=== PATIENT | male | born 1990 | race Caucasian/White ===

== ENCOUNTER 2024-06-09 04:52 | Emergency (ER) | payer OTHER, SELFPAY ==
[2024-06-09 04:53] VITALS: BP 163/104; PULSE 95; RESP 18; TEMP 36.7; O2SAT 96; BMI 29.8
--- NOTE | 2024-06-09 04:55 | HMH.EDGENADL ---
Discharge Plan Disposition Patient Disposition: Home, Self-Care Prescriptions Prescriptions: New methocarbamol 500 mg tablet 500 mg PO Q6H PRN (Reason: pain) Qty: 30 0RF Referrals Follow up/Referrals: Provider,Referral, MD [Primary Care Provider] - See instructions Activity Restrictions/Add. Instructions Additional Instructions/Restrictions: Please follow-up with your primary care provider. Please return to the emergency department if you develop any new or worsening symptoms or become concerned for your health. Please take Tylenol and ibuprofen as needed for pain. Clinical Impressions Clinical Impression: Back pain Qualifiers: Chronicity: acute Back pain laterality: bilateral Sciatica presence: without sciatica Instructions Patient Instructions: DI for Low Back Pain Discharge ED Provider: Micha Calvillo General Adult HPI General Chief complaint: Back Pain/Injury Stated complaint: back, kidney pain Time Seen by Provider: 06/09/24 04:55 History of Present Illness HPI narrative: 33-year-old male with no significant past medical history presents for back pain. He reports it has been going on for the last 2 days. It is bilateral in nature and sometimes midline as well. He reports it is the mid back. He reports that he is an active alejandrina but does not have any specific injuries recently. He reports the pain is sometimes sharp and improved with moving around. He reports occasional urinary urgency but denies any frequency or difficulty urinating. Denies any lower extremity pain numbness or weakness. Reports no concern for STDs. Denies any fever at home. No significant surgeries Related Data Previous Rx's ?Medication ?Instructions ?Recorded methocarbamol 500 mg tablet 500 mg PO Q6H PRN pain #30 tabs 06/09/24 Allergies Allergy/AdvReac Type Severity Reaction Status Date / Time Penicillins Allergy Other Verified 06/09/24 05:07 [facility] Disclaimer: The information contained in this section may have been updated after the patient was seen, as this information can be updated by other users. Social History Smoking Status: Current every day smoker alcohol intake: never current occupational status: other Travel in the last 8 weeks: None ROS Obtained: Yes All systems reviewed & no additional complaints except as documented Physical Exam General General appearance: alert and in no apparent distress Head Head exam: atraumatic and normocephalic Eye Eye exam: Present normal appearance, PERRL and EOMI ENT ENT exam: Present normal oropharynx and normal external ear exam Neck Neck exam: Present normal inspection and full ROM Chest Chest inspection: Present normal inspection and symmetric chest wall rise; Absent tenderness Respiratory Respiratory exam: Present normal lung sounds bilaterally; Absent respiratory distress Cardiovascular Cardiovascular exam: Present regular rate and normal rhythm Abdominal Exam Abdominal exam: Present soft; Absent distention, tenderness or guarding Extremities Exam Extremities exam: Present normal inspection; Absent edema or joint swelling Back Exam Back exam: Present normal inspection, tenderness, CVA tenderness (R) and CVA tenderness (L) Neurological Exam Neurological exam: Present alert and oriented X3; Absent motor sensory deficit Psychiatric Psychiatric exam: Present normal affect and normal mood Skin Skin exam: Present warm, dry and normal color Lymphatic Lymphatic Findings: no adenopathy Medical Decision Making Medical Records Medical records reviewed: Yes I reviewed the patient's medical records. Screening: Per USPSTF and CDC recommendations, given the prevalence of disease in our region, it is our hospital?s policy to screen for HIV and viral Hepatitis for all patients aged 18 and over and those with ongoing risk factors. Manuel Inquiry Pt receiving controlled substance: No Manuel was queried for this patient: No Vital Signs: 06/09/24 04:53 06/09/24 05:17 06/09/24 05:30 Temperature 98.0 F Temperature Source Oral Pulse Rate 85 81 Pulse Rate [Left Radial] 95 H Respiratory Rate 18 Blood Pressure 119/84 126/82 Blood Pressure [Right Arm] 163/104 H Blood Pressure Mean [Right Arm] 123 Blood Pressure Source [Right Arm] Automatic Cuff Blood Pressure Position [Right Arm] Sitting 02 Sat by Pulse Oximetry 96 96 95 Oxygen Delivery Method Room Air Lab Data Lab results reviewed: Yes I reviewed the patient's lab results. Lab Results 06/09/24 04:59: Urine Color Yellow, Urine Appearance Clear, Urine pH 6.0, Ur Specific [place] 1.025, Urine Protein Negative, Urine Glucose (UA) Negative, Urine Ketones Negative, Urine Blood Negative, Urine Nitrate Negative, Urine Bilirubin Negative, Urine Urobilinogen 0.2, Ur Leukocyte Esterase Negative, Urine WBC Occasional, Ur Squamous Epith Cells None, Urine Bacteria Trace 06/09/24 05:17: WBC 11.7 H, RBC 5.32, Hgb 15.8, Hct 46.1, MCV 86.7, MCH 29.7, MCHC 34.3, RDW 12.4, Plt Count 267, MPV 11.1 H, Neut % (Auto) 60.3, Lymph % (Auto) 27.2, [place] % (Auto) 7.1, Eos % (Auto) 4.4, Baso % (Auto) 0.7, Neut # (Auto) 7.1, Lymph # (Auto) 3.2, [place]lin # (Auto) 0.8, Eos # (Auto) 0.5 H, Baso # (Auto) 0.1, Sodium 139, Potassium 4.4, Chloride 104, Carbon Dioxide 29, Anion Gap 10.4, BUN 10, Creatinine 0.90, Estimated Creat Clear 165, Estimated GFR 97, Est GFR ( Amer) 118, Glucose 91, Calcium 9.3, Total Bilirubin 0.6, AST 44, ALT 36, Alkaline Phosphatase 90, Total Protein 7.3, Albumin 4.4, Globulin 2.9, Albumin/Globulin Ratio 1.5 06/09/24 05:17 06/09/24 05:17 Orders (Tests/Meds): ED MEDICATIONS Generic Name Dose Route Start Last Admin Trade Name Freq PRN Reason Stop Dose Admin Sodium Chloride 10 ml 06/09/24 05:55 06/09/24 05:56 Sodium Chloride 0.9% 10ml Syr (Rad Only) IV 07/09/24 05:54 10 ml NEEDED PRN Administration Maintain IV Site Discontinued Medications Generic Name Dose Route Start Last Admin Trade Name Freq PRN Reason Stop Dose Admin Acetaminophen 1,000 mg 06/09/24 05:07 06/09/24 05:42 Acetaminophen 500mg Tab PO 06/09/24 05:08 1,000 mg ONCE ONE Administration Iopamidol 75 ml 06/09/24 05:55 06/09/24 05:56 Iopamidol-370 (76%);100ml Bottle IV 06/09/24 05:56 75 ml ONCE ONE Administration Ketorolac Tromethamine 30 mg 06/09/24 05:07 06/09/24 05:42 Ketorolac 30mg/Ml Vial IV 06/09/24 05:08 30 mg ONCE ONE Administration ORDERS Category Date Time Status CT abdomen pelvis w con Stat Cat Scan 06/09/24 05:07 Completed CBC w/Auto Diff [Complete Blood Count Auto Diff] Stat Lab 06/09/24 05:17 Completed CMP [Comprehensive Metabolic Panel] Stat Lab 06/09/24 05:17 Completed HIV Combo Routine Lab 06/09/24 05:17 Received UA [Urinalysis and Microscopic] Stat Lab 06/09/24 04:59 Completed Medical Decision Narrative: 33-year-old male with no significant past medical history presents with couple days of mid back/bilateral flank pain. History was obtained via interactive discussion with patient. On arrival, patient is [afebrile, hemodynamically stable, satting appropriately, alert, oriented x4, GCS 15], moving all extremities spontaneously. Full physical exam performed and significant for bilateral CVA tenderness, mild tenderness in the mid Differential includes but is not limited to musculoskeletal pain, stone, UTI, pyelo. Patient was given Tylenol Toradol for symptomatic management and correction of underlying abnormalities. Workup initiated including CBC CMP UA GC chlamydia CT abdomen and pelvis with IV contrast. On re-evaluation, patient [remains afebrile, HD stable.] Laboratory workup independently interpreted by me and significant for minimal leukocytosis, normal renal function, urine without blood and only trace bacteria, only occasional WBC, does not appear consistent with acute infection. Imaging independently interpreted by me and significant for no evidence of kidney stone, renal abnormality, intra-abdominal pathology. See radiology read for full review of final results. Given patient history, exam and workup, patient's presentation most likely represents musculoskeletal pain. These findings were communicated patient was discharged in stable condition with return precautions. Patient was discharged with prescription for Robaxin.. Procedures Risk/Benefits of Procedure(s) Were Explained: Yes Critical Care Critical Care Time Critical Care Time: No
--- NOTE | 2024-06-09 05:02 | PC.NURSE ---
Pt ambulatory to Emergency Department, gave urine sample that was sent to the lab.
--- NOTE | 2024-06-09 05:07 | CT_ITS ---
PROCEDURE INFORMATION: Exam: CT Abdomen And Pelvis With Contrast Exam date and time: 06/09/2024 5:49 AM Age: 33 years old Clinical indication: Other: Bilateral flank/back pain TECHNIQUE: Imaging protocol: Computed tomography of the abdomen and pelvis with contrast. Radiation optimization: All CT scans at this facility use at least one of these dose optimization techniques: automated exposure control; mA and/or kV adjustment per patient size (includes targeted exams where dose is matched to clinical indication); or iterative reconstruction. Contrast material: ISOVUE; Contrast volume: 75 ml; Contrast route: IV; COMPARISON: No relevant prior studies available. FINDINGS: Lungs: Basilar atelectasis/scarring. Right upper lobe centrally predominant subsolid opacities in a bronchovascular distribution. Heart: Base of heart is unremarkable as visualized. Liver: Punctate hypodensity within the anterior right hepatic lobe, too small to characterize by modality, statistically likely to represent benign findings. Gallbladder and biliary ducts: Normal. No calcified stones. No ductal dilation. Pancreas: Normal. No ductal dilation. Spleen: Normal. No splenomegaly. Adrenal glands: Normal. No mass. Kidneys and ureters: Normal. No hydronephrosis. Stomach and bowel: [id number] colonic stool burden. Appendix: No evidence of appendicitis. Intraperitoneal space: Unremarkable. No free air. No significant fluid collection. Vasculature: Calcified pelvic phleboliths. Lymph nodes: Unremarkable. No enlarged lymph nodes. Urinary bladder: Unremarkable as visualized. Reproductive: Unremarkable as visualized. Bones/joints: No acute or aggressive osseous abnormality. Soft tissues: Bilateral gynecomastia. IMPRESSION: Right upper lobe centrally predominant subsolid opacities in a bronchovascular distribution which can be seen in infection, inflammation. This finding is incompletely evaluated, consider dedicated CT of the chest for definitive assessment.
[2024-06-09 05:16] LABS: Microscopic, Urine URINE MICROSCOPIC (MICROSCOPIC)
[2024-06-09 05:17] VITALS: BP 119/84; PULSE 85; O2SAT 96
[2024-06-09 05:19] LABS: Appearance,Urine CLEAR (Clear); Bilirubin,Urine Negative (Negative); Blood, Urine Negative (Negative); Color,Urine YELLOW (Yellow); Glucose,Urine (UA) Negative (Negative); Ketones,Urine Negative (Negative); Leukocyte Esterase,Urine Negative (Negative); Nitrate,Urine Negative (Negative); Protein,Urine Negative (Negative); Specific Gravity, Urine 1.025 (1.005-1.030); Urobilinogen,Urine 0.2 EU/dl (0.2)
[2024-06-09 05:30] VITALS: BP 126/82; PULSE 81; O2SAT 95
[2024-06-09 05:35] LABS: Basophils # 0.1 K/mm3 (0-0.2); Basophils % 0.7 % (0.1-2.0); Eosinophils # 0.5 K/mm3 (0.0-0.4); Eosinophils % 4.4 % (0.1-12.0); Hematocrit 46.1 % (42.0-52.0); Hemoglobin 15.8 g/dL (14.1-18.0); Lymphocytes # 3.2 K/mm3 (0.7-4.5); Lymphocytes % 27.2 % (10-50); Mean Corpuscular HGB Conc 34.3 g/dL (31.8-35.4); Mean Corpuscular Hemoglobin 29.7 pg (27.0-31.2); Mean Corpuscular Volume 86.7 fl (80-94); Mean Platelet Volume 11.1 fl (7.4-10.4); Monocytes # 0.8 K/mm3 (0.1-1.0); Monocytes % 7.1 % (1.7-9.3); Neutrophils # 7.1 K/mm3 (1.8-7.8); Neutrophils % 60.3 % (37.0-80.0); Platelet Count 267 K/mm3 (142-424); Red Blood Count 5.32 M/mm3 (4.60-6.20); Red Cell Distribution Width 12.4 % (11.5-17.5); White Blood Count 11.7 K/mm3 (4.8-10.8)
[2024-06-09] MEDS: KETOROLAC 30MG/ML VIAL 30 MG IV (05:42)
[2024-06-09] MEDS: ACETAMINOPHEN 500MG TAB 1000 MG PO (05:42)
[2024-06-09 05:43] LABS: Bacteria,Urine Trace /lpf; WBC,Urine Occasional #/hpf (0-3)
[2024-06-09 05:44] LABS: Alanine Aminotransferase 36 U/L (12-78); Albumin Level 4.4 g/dl (3.5-5.0); Albumin/Globulin Ratio 1.5 (1.1-1.8); Alkaline Phosphatase 90 U/L (38-126); Anion Gap 10.4 mEq/L (5-15); Aspartate Amino Transferase 44 U/L (17-59); Bilirubin,Total 0.6 mg/dl (0.2-1.3); Blood Urea Nitrogen 10 mg/dl (9-20); Calcium 9.3 mg/dl (8.4-10.2); Carbon Dioxide 29 mmol/L (22.0-30.0); Chloride 104 mmol/L (98-107); Creatinine Clearance Estimated 165 mL/min (50-200); Estimated Glomerular Filt Rate 97 ml/min (>60); GFR (African American) 118 ML/MIN (>60); Globulin 2.9 g/dL (1.3-3.2); Glucose 91 mg/dl (74-100); Potassium 4.4 mmoL/L (3.5-5.1); Sodium 139 mmol/L (136-145); Total Protein,Serum 7.3 g/dl (6.3-8.2)
[2024-06-09] MEDS: IOPAMIDOL-370 (76%);100ML BOTTLE 75 ML IV (05:56)
[2024-06-09] MEDS: SODIUM CHLORIDE 0.9% 10ML SYR (RAD ONLY) 10 ML IV (05:56)
[2024-06-09 06:52] VITALS: BP 126/84; PULSE 82; RESP 18; TEMP 36.7; O2SAT 94
[2024-06-09 13:17] LABS: HIV Combo NEGATIVE (Negative)
[2024-06-12 21:08] LABS: Neisseria gonorrhoeae, NAA Negative (Negative)
== END 2024-06-09 06:57 | disposition home or self-care (01) ==
PROVIDERS: Emergency Provider Emergency Medicine
DX: M54.9 Dorsalgia, unspecified (principal); R39.15 Urgency of urination
CPT/HCPCS: 74177; 80053; 81001; 85025; 87389; 87491; 87591; 96374; 99285; J1885; Q9967

== ENCOUNTER 2024-06-13 14:06 | Emergency (ER) | payer OTHER, SELFPAY ==
[2024-06-13 14:08] VITALS: BP 142/92; PULSE 87; RESP 20; TEMP 36.6; O2SAT 98; BMI 29.8
--- NOTE | 2024-06-13 14:12 | HMH.EDGENADL ---
Discharge Plan Disposition Patient Disposition: Home, Self-Care Condition: Good Prescriptions Prescriptions: New clindamycin HCl 300 mg capsule 300 mg PO Q8H 7 Days Qty: 21 0RF No Action methocarbamol 500 mg tablet 500 mg PO Q6H PRN (Reason: pain) Qty: 30 0RF Referrals Follow up/Referrals: Provider,Referral, [Primary Care Provider] - See instructions Activity Restrictions/Add. Instructions Additional Instructions/Restrictions: Please take your antibiotic till it is gone. Utilize a dental balls as needed for local relief. Follow-up with your PCP or return to the ER for any continued new or worsening signs or symptoms. I highly recommend utilizing the dentistry urgent clinic as you already are aware of. If not continue to keep your appointment with dentistry later this month Clinical Impressions Clinical Impression: Dentalgia Stand Alone Forms Stand Alone Forms: Work/School Release Print Language Print Language: Danish Discharge ED Provider: Juan Lynch General Adult HPI <JACINDA Parisi - Last Filed: 06/13/24 16:21> General Chief complaint: Dental/Oral Stated complaint: broken tooth Time Seen by Provider: 06/13/24 14:12 History of Present Illness HPI narrative: Patient presents for evaluation of a broken tooth. Patient states he broke his right rearmost molar 3 days ago. They attempted to go to the dental emergency clinic today but were too late. Patient was able to get a dentistry appointment but it is not until 2 weeks from now. He reports that his got more painful when he feels like his face is swelling. He denies any difficulty speaking eating drinking fever chills hemoptysis hematochezia melena nausea vomit diarrhea. Related Data Previous Rx's ?Medication ?Instructions ?Recorded methocarbamol 500 mg tablet 500 mg PO Q6H PRN pain #30 tabs 06/09/24 clindamycin HCl 300 mg capsule 300 mg PO Q8H 7 days #21 caps 06/13/24 Allergies Allergy/AdvReac Type Severity Reaction Status Date / Time Penicillins Allergy Other Verified 06/09/24 05:07 PFSH <JACINDA Parisi - Last Filed: 06/13/24 16:21> PFS Disclaimer: The information contained in this section may have been updated after the patient was seen, as this information can be updated by other users. Social History (Updated 06/09/24 @ 06:41 by Micha Calvillo MD) Smoking Status: Current every day smoker alcohol intake: never current occupational status: other Travel in the last 8 weeks: None Have you lived/traveled outside [place] in past 30 days?: No Contact w/someone who lives/traveled outside US past 30 days?: No Exposure to someone with infectious disease in past 14 days?: No Do you have a fever (greater than 100.4 F or 38 C)?: No Have you tested positive for COVID-19: No Exposed to someone with COVID-19 in past 14 days?: No Do you have a sore throat?: No Do you have a cough?: No Do you have any weakness?: No Do you have any diarrhea?: No Are you experiencing any unusual bleeding?: No Do you have any muscle aches/pain?: No Do you have any abdominal pain?: No Are you experiencing loss of taste or smell?: No <JACINDA Parisi - Last Filed: 06/13/24 16:21> ROS Obtained: Yes Systems reviewed as appropriate & no additional complaints except as documented Physical Exam <JACINDA Parisi - Last Filed: 06/13/24 16:21> General General appearance: alert Respiratory Respiratory exam: Present normal lung sounds bilaterally Cardiovascular Cardiovascular exam: Present regular rate Neurological Exam Neurological exam: Present alert and oriented X3 Medical Decision Making <JACINDA Parisi - Last Filed: 06/13/24 16:21> Medical Records Screening: Per USPSTF and CDC recommendations, given the prevalence of disease in our region, it is our hospital?s policy to screen for HIV and viral Hepatitis for all patients aged 18 and over and those with ongoing risk factors. Manuel Inquiry Pt receiving controlled substance: No Vital Signs: 06/13/24 14:08 06/13/24 14:35 Temperature 97.9 F 98.0 F Temperature Source Oral Pulse Rate 80 Pulse Rate [Left Radial] 87 Respiratory Rate 20 20 Blood Pressure 140/79 Blood Pressure [Right Arm] 142/92 H Blood Pressure Mean [Right Arm] 108 02 Sat by Pulse Oximetry 98 Oxygen Delivery Method Room Air Room Air Orders (Tests/Meds): ED MEDICATIONS Discontinued Medications Generic Name Dose Route Start Last Admin Trade Name Freq PRN Reason Stop Dose Admin Clindamycin HCl 300 mg 06/13/24 14:20 06/13/24 14:28 Clindamycin 150mg Capsule PO 06/13/24 14:21 300 mg ONCE ONE Administration Lidocaine HCl 15 ml 06/13/24 14:19 06/13/24 14:28 Lidocaine 2% Viscous Lisandra 15ml Udc PO 06/13/24 14:20 15 ml ONCE ONE Administration Medical Decision Narrative: In summary patient is a 33-year-old male who presents to the emergency department for evaluation of a broken tooth and pain. Patient is hemodynamically stable afebrile upon arrival, afebrile. Physical exam does show a broken right lower rearmost molar however there is no evidence of cellulitis edema swelling tongue deviation hardness or swelling tongue protrusion. There is no cervical lymphadenopathy. There is no submandibular swelling. No facial redness or fullness.. Differential diagnosis includes dentalgia but versus early dentalgia. Initial workup was considered with labs and imaging however patient has no red flags of deep space infection thus deferred. Initial interventions include dental balls. Patient offered dental block however patient declined. Patient directed decision making. He did request antibiotics and while I feel he has minimal symptoms of evidence of cellulitis now he is certainly at high risk and given his penicillin allergy and was started on clindamycin. Thus patient is appropriate for discharge with dental balls prescription for clindamycin with first dose given here and recommendations for following up with the dental urgent care clinic or keeping his already up established dental appointment in 2 weeks. Patient verbalized understanding and agreement. <Juan Lynch MD - Last Filed: 06/13/24 16:23> Vital Signs: 06/13/24 14:08 06/13/24 14:35 Temperature 97.9 F 98.0 F Temperature Source Oral Pulse Rate 80 Pulse Rate [Left Radial] 87 Respiratory Rate 20 20 Blood Pressure 140/79 Blood Pressure [Right Arm] 142/92 H Blood Pressure Mean [Right Arm] 108 02 Sat by Pulse Oximetry 98 Oxygen Delivery Method Room Air Room Air Orders (Tests/Meds): ED MEDICATIONS Discontinued Medications Generic Name Dose Route Start Last Admin Trade Name Freq PRN Reason Stop Dose Admin Clindamycin HCl 300 mg 06/13/24 14:20 06/13/24 14:28 Clindamycin 150mg Capsule PO 06/13/24 14:21 300 mg ONCE ONE Administration Lidocaine HCl 15 ml 06/13/24 14:19 06/13/24 14:28 Lidocaine 2% Viscous Lisandra 15ml Udc PO 06/13/24 14:20 15 ml ONCE ONE Administration Medical Decision Narrative: In summary patient is a 33-year-old male who presents to the emergency department for evaluation of a broken tooth and pain. Patient is hemodynamically stable afebrile upon arrival, afebrile. Physical exam does show a broken right lower rearmost molar however there is no evidence of cellulitis edema swelling tongue deviation hardness or swelling tongue protrusion. There is no cervical lymphadenopathy. There is no submandibular swelling. No facial redness or fullness.. Differential diagnosis includes dentalgia but versus early dentalgia. Initial workup was considered with labs and imaging however patient has no red flags of deep space infection thus deferred. Initial interventions include dental balls. Patient offered dental block however patient declined. Patient directed decision making. He did request antibiotics and while I feel he has minimal symptoms of evidence of cellulitis now he is certainly at high risk and given his penicillin allergy and was started on clindamycin. Thus patient is appropriate for discharge with dental balls prescription for clindamycin with first dose given here and recommendations for following up with the dental urgent care clinic or keeping his already up established dental appointment in 2 weeks. Patient verbalized understanding and agreement. I was consulted by the JEREMY, and we discussed the complexity of the problems being addressed. I approved the treatment and management plan for this patient's care in the emergency department, thus performing a substantive portion of the medical decision making. Juan Lynch MD Critical Care <JACINDA Parisi - Last Filed: 06/13/24 16:21> Critical Care Time Critical Care Time: No
[2024-06-13] MEDS: LIDOCAINE 2% VISCOUS SOL 15ML UDC 15 ML PO (14:28)
[2024-06-13] MEDS: CLINDAMYCIN 150MG CAPSULE 300 MG PO (14:28)
[2024-06-13 14:35] VITALS: BP 140/79; PULSE 80; RESP 20; TEMP 36.7; O2SAT 98
== END 2024-06-13 14:36 | disposition home or self-care (01) ==
PROVIDERS: Emergency Provider Emergency Medicine
DX: K08.89 Other specified disorders of teeth and supporting structures (principal); Z72.0 Tobacco use
CPT/HCPCS: 99283

== ENCOUNTER 2024-08-30 09:56 | Emergency (ER) | payer OTHER, SELFPAY ==
[2024-08-30 10:05] VITALS: BP 149/95; PULSE 80; RESP 20; TEMP 36.8; O2SAT 100; BMI 27.1
--- NOTE | 2024-08-30 10:20 | XR_ITS ---
FINAL REPORT CLINICAL HISTORY: Previous injury, new pain after rowing motion. States he tried to start lawnmower yesterday, c/o right shoulder pain today. COMPARISON: None FINDINGS: 3 views of the right shoulder were obtained. There is no acute fracture or dislocation. The glenohumeral joint is intact. There is AC separation. There is a calcification along the inferior aspect of the distal clavicle, which may be chronic. There is no acute soft tissue edema. Otherwise, no abnormality. IMPRESSION: AC separation which may be chronic. Recommend comparison with any prior exam. No acute abnormality of the glenohumeral joint. Reviewed, Interpreted and Dictated by Emilia Vogel MD Transcribed by Caroline Magana Authenticated and [facility]
[2024-08-30] MEDS: DEXAMETHASONE 4MG TABLET 10 MG PO (10:33)
[2024-08-30] MEDS: KETOROLAC 30MG/ML VIAL 30 MG IM (10:33)
[2024-08-30] MEDS: LIDOCAINE 5% TRANSDERMAL PATCH 1 EACH TD (10:34)
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
[2024-08-30 11:17] VITALS: BP 140/79; PULSE 76; RESP 20; TEMP 36.8; O2SAT 100
== END 2024-08-30 11:20 | disposition home or self-care (01) ==
PROVIDERS: Emergency Provider Emergency Medicine
DX: S49.91XA Unspecified injury of right shoulder and upper arm, initial encounter (principal); X50.0XXA Overexertion from strenuous movement or load, initial encounter
CPT/HCPCS: 73030; 96372; 99283; J1885; J8540